=== PATIENT | female | born 1990 | race Caucasian/White ===

== ENCOUNTER 2021-07-04 14:37 | Emergency (ER) | payer SELFPAY ==
[~2021-07-04] VITALS: Ht 170.2 cm; Wt 78.0 kg
[2021-07-04 14:40] VITALS: BP 156/81
--- NOTE | 2021-07-04 14:49 | NUR ---
PT AMB TO [facility]
--- NOTE | 2021-07-04 14:55 | NUR ---
PT TAKEN TO X RAY
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
--- NOTE | 2021-07-04 15:01 | NUR ---
Pt returned to chair C from Xray at this time
--- NOTE | 2021-07-04 15:10 | NUR ---
PT AMBULATED TO ER BED 4 WITH A STEADY GAIT.
[2021-07-04] MEDS ORDERED: MORPHINE SULFATE 4 MG/ML SYR IM ONE (15:15)
[2021-07-04] MEDS ORDERED: LIDOCAINE 2% 1000 MG/50 ML VIAL INJ ONE (15:15)
[2021-07-04] MEDS ORDERED: IBUPROFEN 600 MG TAB PO ONE (15:15)
--- NOTE | 2021-07-04 15:54 | NUR ---
G[employer] MINER BLASTING AT PT BEDSIDE.
[2021-07-04] MEDS ORDERED: ACET-9525 PO (16:07)
[2021-07-04] MEDS ORDERED: IBUP-2213 PO (16:07)
--- NOTE | 2021-07-04 16:34 | NUR ---
REVIEWED & APPROVED [facility] G[employer]TER SPLINT
[2021-07-04 16:49] VITALS: BP 142/72
--- NOTE | 2021-07-04 16:49 | NUR ---
Patient discharged with v/s stable. Written and verbal after care instructions given FOR [employer] and explained. Patient alert, oriented and verbalized understanding of instructions. Ambulatory with steady gait. All questions addressed prior to discharge. ID band removed. Patient advised to follow up with PMD. Rx of NORCO AND IBUPROFEN given. Patient educated on indication of medication including possible reaction and side effects. Opportunity to ask questions provided and answered.
== END 2021-07-04 16:49 | disposition home or self-care (01) ==
LOC: MED 14:37
DX: S62.336A Displaced fracture of neck of fifth metacarpal bone, right hand, initial encounter for closed fracture (principal); Z79.891 Long term (current) use of opiate analgesic; Z79.1 Long term (current) use of non-steroidal anti-inflammatories (NSAID); W22.8XXA Striking against or struck by other objects, initial encounter; Y92.000 Kitchen of unspecified non-institutional (private) residence as the place of occurrence of the external cause; Y93.89 Activity, other specified; Y99.8 Other external cause status
CPT/HCPCS: 26605; 73110; 73130; 99284; J2001; J2270

== ENCOUNTER 2022-08-13 20:32 | Emergency (ER) | payer SELFPAY ==
[~2022-08-13] VITALS: Ht 170.2 cm; Wt 68.5 kg
[~2022-08-13 20:32] MED LIST: ACET-9525 PO; IBUP-2213 PO
[2022-08-13 21:33] VITALS: BP 140/93
--- NOTE | 2022-08-13 22:26 | NUR ---
Dr. Gaitan examining patient.
--- NOTE | 2022-08-13 22:26 | NUR ---
Michael aguiar in [facility] - 08/13/[address] Gaitan examining patient.
--- NOTE | 2022-08-13 22:27 | NUR ---
URINE GIVEN TO LAB.
[2022-08-13 22:41] LABS: BASOPHILS # (AUTO) 0.1 K/uL (0.00-0.22); EOSINOPHILS # (AUTO) 0.3 K/uL (0-0.4); EOSINOPHILS % (AUTO) 4.8 % (0.0-4.0); HEMATOCRIT 38.3 % (36-48); HEMOGLOBIN 12.7 g/dL (12.0-16.0); LYMPHOCYTES # (AUTO) 1.6 K/uL (2.5-16.5); LYMPHOCYTES % (AUTO) 28.5 % (20.5-51.1); MEAN CORPUSCULAR HEMOGLOBIN 28 pg (27-31); MEAN CORPUSCULAR HGB CONC 33 g/dL (33-37); MEAN CORPUSCULAR VOLUME 84.9 fL (80-94); MONOCYTES # (AUTO) 0.4 K/uL (0.8-1.0); MONOCYTES % (AUTO) 6.7 % (1.7-9.3); NEUTROPHILS # (AUTO) 3.3 K/uL (1.8-7.7); PLATELET COUNT (AUTO) 199 K/uL (140-450); RED BLOOD CELL COUNT(AUTO) 4.52 MIL/uL (4.20-5.40); RED CELL DISTRIBUTION WIDTH 14.1 % (11.6-13.7); WHITE BLOOD COUNT (AUTO) 5.6 K/uL (4.8-10.8)
[2022-08-13 22:58] LABS: APPEARANCE,URINE CLEAR (CLEAR); BILIRUBIN,URINE NEGATIVE (NEGATIVE); BLOOD, URINE NEGATIVE (NEGATIVE); COLOR,URINE YELLOW (YELLOW); LEUKOCYTE ESTERASE ,URINE TRACE (NEGATIVE); NITRITE, URINE NEGATIVE (NEGATIVE); UGLUCOSE NEGATIVE (NEGATIVE)
[2022-08-13 23:17] LABS: RBC,URINE NONE SEEN /HPF (0-5); WBC,URINE 0-5 /HPF (0-5)
[2022-08-13 23:18] LABS: ALBUMIN 3.9 g/dL (3.4-5.0); ANION GAP 9.4 (8-16); CREATININE 0.9 mg/dL (0.6-1.3); POTASSIUM 4.4 mmol/L (3.5-5.1); THYROID STIMULATING HORMONE 1.1 uIU/mL (0.34-3.74); TOTAL BILIRUBIN 0.2 mg/dL (0.0-1.0)
== END 2022-08-13 23:31 | disposition home or self-care (01) ==
LOC: MED 20:32
DX: F41.9 Anxiety disorder, unspecified (principal); E11.9 Type 2 diabetes mellitus without complications; I10 Essential (primary) hypertension; Z79.4 Long term (current) use of insulin; Z79.899 Other long term (current) drug therapy; Z98.890 Other specified postprocedural states
CPT/HCPCS: 36415; 80053; 81001; 84443; 85025; 90471; 90715; 99283

== ENCOUNTER 2023-01-10 09:24 | Emergency (ER) | payer SELFPAY ==
[~2023-01-10] VITALS: Ht 170.2 cm; Wt 73.5 kg
[2023-01-10 09:27] VITALS: BP 140/99; PULSE 102; RESP 18; TEMP 97.7; O2SAT 99
[2023-01-10] MEDS ORDERED: ONDANSETRON 4 MG ODT PO ONE (10:10)
[2023-01-10] MEDS ORDERED: ACETAMINOPHEN EXTRA STRENGTH 500 MG TAB PO ONE (10:10)
== END 2023-01-10 10:15 ==
LOC: MED 09:24
DX: S43.492A Other sprain of left shoulder joint, initial encounter (principal); S50.01XA Contusion of right elbow, initial encounter; I10 Essential (primary) hypertension; E11.9 Type 2 diabetes mellitus without complications; Z79.4 Long term (current) use of insulin; Z79.899 Other long term (current) drug therapy; X58.XXXA Exposure to other specified factors, initial encounter; Y93.89 Activity, other specified; Y92.89 Other specified places as the place of occurrence of the external cause; Y99.8 Other external cause status
CPT/HCPCS: 99283; Q0162

== ENCOUNTER 2023-05-04 12:49 | Emergency (ER) | payer SELFPAY ==
[~2023-05-04] VITALS: Ht 167.6 cm; Wt 72.6 kg
[2023-05-04 12:58] VITALS: BP 106/74; PULSE 90; RESP 18; TEMP 99; O2SAT 98
[2023-05-04] MEDS ORDERED: AMOX-1230 PO (13:35)
== END 2023-05-04 13:53 | disposition home or self-care (01) ==
LOC: MED 12:49
DX: S60.511A Abrasion of right hand, initial encounter (principal); W55.03XA Scratched by cat, initial encounter; Y93.89 Activity, other specified; Y92.89 Other specified places as the place of occurrence of the external cause; Y99.8 Other external cause status
CPT/HCPCS: 73130; 99283